=== PATIENT | female | born 1940 | race Caucasian/White ===

== ENCOUNTER 2017-09-23 12:53 | Emergency (ER) | payer MEDICARE ==
[~2017-09-23] VITALS: Ht 154.9 cm; Wt 99.1 kg
[~2017-09-23 12:53] MED LIST: CEPH500C5 PO
[2017-09-23] MEDS ORDERED: CefTRIAXone 250MG IM Kit w/LIDOcaine IM ONE (14:10)
[2017-09-23] MEDS ORDERED: MUPI22OI30 TOP (14:24)
[2017-09-23] MEDS ORDERED: LEVO500T2 PO (14:24)
[2017-09-23] MEDS ORDERED: GUAI-652 PO (14:28)
[2017-09-23 14:41] VITALS: BP 122/63
== END 2017-09-23 14:42 | disposition home or self-care (01) ==
LOC: ER 12:54
DX: A46 Erysipelas (principal); J32.9 Chronic sinusitis, unspecified; J45.909 Unspecified asthma, uncomplicated; E11.9 Type 2 diabetes mellitus without complications; E03.9 Hypothyroidism, unspecified; Z87.442 Personal history of urinary calculi; Z90.49 Acquired absence of other specified parts of digestive tract; Z88.2 Allergy status to sulfonamides; Z79.899 Other long term (current) drug therapy
CPT/HCPCS: 96372; 99283; J0696

== ENCOUNTER 2018-05-31 17:53 | Emergency (ER) | payer MEDICARE ==
[~2018-05-31] VITALS: Ht 157.5 cm; Wt 105.0 kg
[~2018-05-31 17:53] MED LIST changes: +GUAI-652 PO; +MUPI22OI30 TOP
[2018-05-31] MEDS ORDERED: LIDOcaine 1.5% w/epinephrine 1:200,000 5ml ampul IJ ONE (18:00)
[2018-05-31] MEDS ORDERED: LIDOcaine 1% w/EPI 1:100,000 30ml vial (MDV) IJ ONE (18:10)
[2018-05-31] MEDS ORDERED: TRAM50TA2 PO (19:46)
[2018-05-31] MEDS ORDERED: acetaminophen 325mg tablet PO ONE (20:30)
[2018-05-31] MEDS ORDERED: HYDR-3965 PO (20:38)
[2018-05-31 20:57] VITALS: BP 147/65
== END 2018-05-31 21:11 | disposition home or self-care (01) ==
LOC: ER 17:53
DX: S81.012A Laceration without foreign body, left knee, initial encounter (principal); S61.412A Laceration without foreign body of left hand, initial encounter; S61.411A Laceration without foreign body of right hand, initial encounter; S16.1XXA Strain of muscle, fascia and tendon at neck level, initial encounter; S50.01XA Contusion of right elbow, initial encounter; S80.02XA Contusion of left knee, initial encounter; S60.221A Contusion of right hand, initial encounter; S60.222A Contusion of left hand, initial encounter; S40.011A Contusion of right shoulder, initial encounter; S09.90XA Unspecified injury of head, initial encounter; S00.81XA Abrasion of other part of head, initial encounter; J45.909 Unspecified asthma, uncomplicated; E11.9 Type 2 diabetes mellitus without complications; E03.9 Hypothyroidism, unspecified; Z90.49 Acquired absence of other specified parts of digestive tract; Z88.2 Allergy status to sulfonamides; W19.XXXA Unspecified fall, initial encounter; Y93.01 Activity, walking, marching and hiking; Y92.89 Other specified places as the place of occurrence of the external cause; Y99.9 Unspecified external cause status
CPT/HCPCS: 70450; 72125; 73030; 73080; 73130; 73564; 99284; J3490

== ENCOUNTER → 2018-07-21 | Emergency (ER) | payer MEDICARE ==
[~2018-07-21] VITALS: Ht 156.2 cm; Wt 102.3 kg
[~2018-07-21] MED LIST changes: +CEPH-572 PO; -CEPH500C5 PO; +CYCL-1 PO; +HYDROcodone/acetaminophen 10/325mg tab PO ONE
[2018-07-21 15:31] VITALS: BP 141/118
[2018-07-21 16:39] LABS: CLARITY,URINE CLOUDY (Clear); COLOR,URINE YELLOW (Yellow); GLUCOSE, URINE NEGATIVE (Neg); KETONES,URINE NEGATIVE (Neg); LEUKOCYTE ESTERASE ,URINE TRACE (Neg); NITRITES, URINE NEGATIVE (Neg); OCCULT BLOOD,URINE NEGATIVE (Neg); PH,URINE 5.5 (4.8-8.0); PROTEIN,URINE NEGATIVE (Neg)
[2018-07-21 16:49] LABS: UA COLLECTION TYPE NON-SPECIFIED
[2018-07-21 17:04] LABS: MUCUS STRANDS FEW /LPF (Neg); SQUAMOUS EPITHELIAL CELL,UR MANY /LPF (FEW)
[2018-07-21 17:05] LABS: BACTERIA,URINE 1+ /HPF (Neg); RBC,URINE 0-2 /HPF (0-2)
== END | disposition home or self-care (01) ==
LOC: ER 14:29
DX: S39.012A Strain of muscle, fascia and tendon of lower back, initial encounter (principal); N39.0 Urinary tract infection, site not specified; N89.8 Other specified noninflammatory disorders of vagina; J45.909 Unspecified asthma, uncomplicated; E11.9 Type 2 diabetes mellitus without complications; E03.9 Hypothyroidism, unspecified; Z90.49 Acquired absence of other specified parts of digestive tract; Z88.2 Allergy status to sulfonamides; W19.XXXA Unspecified fall, initial encounter; Y93.89 Activity, other specified; Y99.8 Other external cause status; Y92.89 Other specified places as the place of occurrence of the external cause
CPT/HCPCS: 72100; 81001; 99284

== ENCOUNTER 2018-08-16 19:43 | Emergency (ER) | payer MEDICARE ==
[~2018-08-16] VITALS: Ht 154.9 cm; Wt 103.0 kg
[~2018-08-16 19:43] MED LIST changes: -CEPH-572 PO; -GUAI-652 PO; -HYDROcodone/acetaminophen 10/325mg tab PO ONE; -MUPI22OI30 TOP
[2018-08-16 20:58] LABS: BASOPHILS % (AUTO) 0 % (0-1); EOSINOPHILS # (AUTO) 0.1 X10'3 (0-0.9); EOSINOPHILS % (AUTO) 0.6 % (0-6); HEMATOCRIT 32.3 % (35.0-45.0); HEMOGLOBIN 11.2 g/dl (12.0-16.0); LYMPHOCYTES # (AUTO) 0.6 X10'3 (1.1-4.8); LYMPHOCYTES % (AUTO) 8.1 % (21-51); MEAN CORPUSCULAR HEMOGLOBIN 30.7 PG (27.0-31.0); MEAN CORPUSCULAR HGB CONC 34.7 % (33.0-36.5); MEAN CORPUSCULAR VOLUME 88.4 FL (78-98); MEAN PLATELET VOLUME 8.5 FL (7.4-10.4); MONOCYTES # (AUTO) 0.6 X10'3 (0-0.9); MONOCYTES % (AUTO) 7.8 % (2-12); NEUTROPHILS # (AUTO) 6.6 X10'3 (1.8-7.7); NEUTROPHILS % (AUTO) 83.5 % (42-75); PLATELET COUNT 84 X10'3 (140-440); RED BLOOD COUNT 3.65 X10'6 (4.20-5.60); RED CELL DISTRIBUTION WIDTH 14.5 % (11.5-14.5); WHITE BLOOD COUNT 7.9 X10'3 (4.5-11.0)
[2018-08-16 21:20] LABS: CLARITY,URINE SLIGHTLY CLOUDY (Clear); COLOR,URINE YELLOW (Yellow); GLUCOSE, URINE NEGATIVE (Neg); KETONES,URINE NEGATIVE (Neg); LEUKOCYTE ESTERASE ,URINE MODERATE (Neg); NITRITES, URINE NEGATIVE (Neg); OCCULT BLOOD,URINE TRACE-INTACT (Neg); PH,URINE 6.5 (4.8-8.0); PROTEIN,URINE NEGATIVE (Neg)
[2018-08-16 21:27] LABS: UA COLLECTION TYPE CLN CATCH MIDSTREAM
[2018-08-16 21:28] LABS: SQUAMOUS EPITHELIAL CELL,UR MANY /LPF (FEW)
[2018-08-16 21:29] LABS: ALANINE AMINOTRANSFERASE 26 U/L (12-78); ALBUMIN 3.1 G/DL (3.4-5.0); ALBUMIN/GLOBULIN RATIO 0.8 (1.1-1.5); ALKALINE PHOSPHATASE 91 IU/L (46-116); ANION GAP 13 (8-16); ASPARTATE AMINO TRANSFERASE 42 U/L (10-37); BILIRUBIN,TOTAL 2.7 MG/DL (0.1-1.0); BLOOD UREA NITROGEN 15 MG/DL (7-18); BUN/CREATININE RATIO 17.2 (6.6-38.0); CALCIUM 8.1 MG/DL (8.5-10.1); CHLORIDE 103 MMOL/L (99-107); CREATININE 0.87 MG/DL (0.40-0.90); GLUCOSE 117 MG/DL (70-104); POTASSIUM 3.9 MMOL/L (3.5-5.1); SODIUM 139 MMOL/L (135-145); TOTAL CARBON DIOXIDE 23.2 MMOL/L (24-32); TOTAL PROTEIN 6.8 G/DL (6.4-8.2); eGFR 63 ML/MIN
[2018-08-16 21:30] LABS: BACTERIA,URINE 2+ /HPF (Neg); RBC,URINE NONE SEEN /HPF (0-2)
[2018-08-16] MEDS ORDERED: levoFLOXACIN-Levaquin 500mg/D5 100 ML IV ONE (21:30)
[2018-08-16 21:39] LABS: INR 1.2 INR; PARTIAL THROMBOPLASTIN TIME 34 SECONDS (22-32); PROTHROMBIN TIME 11.9 SECONDS (9.0-12.0)
[2018-08-16 22:18] VITALS: BP 152/69
[2018-08-16] MEDS ORDERED: LEVO500T89 PO (22:26)
[2018-08-16] MEDS ORDERED: acetaminophen 325mg tablet PO STA (22:29)
== END 2018-08-16 23:09 | disposition home or self-care (01) ==
LOC: ER 19:44
DX: L03.115 Cellulitis of right lower limb (principal); L97.519 Non-pressure chronic ulcer of other part of right foot with unspecified severity; J45.909 Unspecified asthma, uncomplicated; E11.9 Type 2 diabetes mellitus without complications; E03.9 Hypothyroidism, unspecified; Z90.49 Acquired absence of other specified parts of digestive tract; Z88.2 Allergy status to sulfonamides; Z79.899 Other long term (current) drug therapy
CPT/HCPCS: 36415; 71045; 80053; 81001; 84145; 85025; 85610; 85730; 87040; 87186; 93005; 96365; 99284; J1956; 87077